=== PATIENT | male | born 1965 ===

== ENCOUNTER 2017-05-22 07:02 | Emergency (ER) | payer OTHER ==
[2017-05-22 07:12] VITALS: BP 154/89
--- NOTE | 2017-05-22 07:15 | UC ---
Eye Complaint HPI - HPI Summary HPI Summary: 51 year old with eye complaint c/o eyes with crusty, draining duing day itchy. Accompanied by a cold for ten days as well. Starting yesterday has a thick phlegm cough. [ End ] - History of Current Complaint Chief Complaint: UCEye Stated Complaint: EYE COMPLAINT Time Seen by Provider: 05/22/17 07:11 Hx Obtained From: Patient Severity Initially: Mild Severity Currently: Moderate Aggravating Factor(s): Nothing Alleviating Factor(s): Nothing Associated Signs And Symptoms: Positive: Drainage (Clear), Drainage (Purulent) Related History: Similar Episode - 1 yr ago - Risk Factors Penetrating Injury Risk Factor: Negative Globe Rupture Risk Factors: Negative Acute Glaucoma Risk Factors: Negative Optic Artery Occlusion Risk Factors: Negative - Allergies/Home Medications Allergies/Adverse Reactions: Allergies Allergy/AdvReac Type Severity Reaction Status Date / Time No Known Allergies Allergy Verified 05/27/16 07:17 PMH/Surg Hx/FS Hx/Imm Hx Previously Healthy: Yes Other History Of: Negative For: HIV, Hepatitis B, Hepatitis C, Anticoagulant Therapy - Surgical History Surgical History: None Surgery Procedure, Year, and Place: denies - Family History Known Family History: Negative: Cardiac Disease, Hypertension - Social History Occupation: Employed Full-time Lives: With Family Alcohol Use: None Substance Use Type: None Smoking Status (MU): Never Smoked Tobacco Review of Systems Eyes: Drainage, Eye Redness Is Patient Immunocompromised?: No All Other Systems Reviewed And Are Negative: Yes Physical Exam Triage Information Reviewed: Yes Appearance: Well-Appearing, No Pain Distress, Well-Nourished Vital Signs: Initial Vital Signs Temp 96.8 F 05/22/17 07:08 Pulse 100 05/22/17 07:08 Resp 18 05/22/17 07:08 BP 154/89 05/22/17 07:08 Pulse Ox 100 05/22/17 07:08 Vital Signs Reviewed: Yes Eyes: Positive: Conjunctiva Inflamed - mild injection mild eye ENT Exam: Normal Dental Exam: Normal Neck exam: Normal Respiratory Exam: Normal Cardiovascular Exam: Normal Musculoskeletal Exam: Normal Neurological Exam: Normal Psychological Exam: Normal Skin Exam: Normal Eye Complaint Course/Dx - Course Course Of Treatment: advised to use drops for 2 days and if after weekend no improement to call dr chavez for follow up - Differential Dx/Diagnosis Differential Diagnosis/HQI/PQRI: Conjunctivitis Provider Diagnoses: conjunctivitis right eye Discharge - Discharge Plan Condition: Good Disposition: HOME Patient Education Materials: Conjunctivitis (ED) Referrals: No Primary Care Phys,NOPCP [Primary Care Provider] -
== END 2017-05-22 07:47 | disposition home or self-care (01) ==
LOC: UCEAST 07:02
DX: H10.9 Unspecified conjunctivitis (principal)
CPT/HCPCS: 99212; G0463